=== PATIENT | female | born 1990 | race Asian ===

== ENCOUNTER 2021-05-03 16:39 | Emergency (ER) | payer OTHER ==
[2021-05-03 16:53] VITALS: BP 115/70; PULSE 80; RESP 18; TEMP 98.3
[2021-05-03 17:50] LABS: Basophils % (A) 1 %; Eosinophils # (A) 0.2 k/uL (0-0.7); Eosinophils % (A) 3 %; HCT 36.9 % (34.0-46.0); HGB 12.6 gm/dL (11.4-16.0); Lymphocytes # (A) 1.5 k/uL (1.0-4.8); Lymphocytes % (A) 18 %; MCH 30.6 pg (25.0-35.0); MCHC 34.1 g/dL (31.0-37.0); MCV 89.8 fL (80.0-100.0); Mean Platelet Volume 7.3; Monocytes # (A) 0.4 k/uL (0-1.0); Monocytes % (A) 5 %; Neutrophils # (A) 5.8 k/uL (1.3-7.7); Neutrophils % (A) 71 %; Platelet Count 253 k/uL (150-450); RBC 4.11 m/uL (3.80-5.40); RDW 14.3 % (11.5-15.5); WBC 8.2 k/uL (3.8-10.6)
[2021-05-03 17:53] LABS: Appearance,Urine Clear (Clear); Bacteria,Urine Rare /hpf; Bilirubin,Urine Negative (Negative); Blood,Urine Large (Negative); Color,Urine Yellow; Glucose,Urine (UA) Negative (Negative); Ketones,Urine Negative (Negative); Leukocyte Esterase,Urine Trace (Negative); Nitrite,Urine Negative (Negative); Protein,Urine Trace (Negative); RBC,Urine >182 /hpf (0-5); Specific Gravity,Urine 1.009 (1.001-1.035); Squamous Epithelial Cell,Urine 1 /hpf (0-4); Urobilinogen,Urine <2.0 mg/dL (<2.0); WBC,Urine 14 /hpf (0-5)
[2021-05-03 18:10] LABS: ALT 17 U/L (4-34); AST 27 U/L (14-36); African American GFR (CKD) >90 (>60 ml/min/1.73 sqM); Albumin 3.8 g/dL (3.5-5.0); Alkaline Phosphatase 44 U/L (38-126); Anion Gap 6 mmol/L; Blood Urea Nitrogen 12 mg/dL (7-17); Calcium 8.7 mg/dL (8.4-10.2); Carbon Dioxide 25 mmol/L (22-30); Chloride 104 mmol/L (98-107); Glucose 132 mg/dL (74-99); Non-African American GFR(CKD) >90 (>60 ml/min/1.73 sqM); Potassium 3.6 mmol/L (3.5-5.1); Sodium 135 mmol/L (137-145); Total Bilirubin 0.5 mg/dL (0.2-1.3); Total Protein 7.2 g/dL (6.3-8.2)
[2021-05-03 18:27] LABS: HCG,Quantitative Serum 3.4 mIU/mL
--- NOTE | 2021-05-03 18:53 | US ---
EXAMINATION TYPE: Transabdominal DATE OF EXAM: 05/03/2021 6:29 PM COMPARISON: NONE CLINICAL HISTORY: vaginal bleeding. EC patient with heavy vaginal bleeding with clots x 2 days; multi ple positive home tests yesterday per patient with 1 out of 2 negative today. EXAM PERFORMED: Transvaginal (TV) and Transabdominal (TA) EXAM MEASUREMENTS: GESTATIONAL AGE / DATING Physician Established: Not yet established Dates by LMP: (3 weeks/6 days) EDC: 01/11/2022 Dates by First Scan: No previous Dates by Current Scan for: No IUP seen at this time; no ectopic seen MATERNAL ANATOMY Uterus: retroverted; 9 x3 x 4.7 x 4.6cm Right Ovary: 4.1 x 2.7 x 1.9cm; multiple small follicles seen Left Ovary: 2.2 x 2.4 x 1.3cm; multiple follicles with largest = 0.9 x 1.0 x 0.9cm Post CDS / Adnexa: free fluid seen lateral to left ovary =1.9 x 1.3 x 2.5cm Presence of corpus luteal cyst: not seen GESTATION / SURVEY; No IUP seen; no ectopic seen. Date of LMP: 04/06/2021 Beta HcG (if available): 3.4mIU/mL IMPRESSION: Empty uterus. No adnexal mass. Minimal free fluid on the left side.
--- NOTE | 2021-05-03 19:03 | ED ---
Female Urogenital HPI - General Chief complaint: Vaginal Bleeding Stated complaint: early , vaginal bleeding Time Seen by Provider: 05/03/21 16:55 Source: patient Mode of arrival: ambulatory Limitations: no limitations - History of Present Illness Initial comments: Patient is a 31-year-old female who presents the ER today for vaginal bleeding. Patient states that she had a positive test in July of last year, she miscarried on October 06. Her last menstrual period was early March, she had a positive test earlier this week and began having some bleeding yesterday continues to bleed today. Minimal cramping. Patient states that she feels the same as she did when she had a miscarriage before. Patient has not had any care for this estimates that she is 4 weeks . - Related Data Allergies Allergy/AdvReac Type Severity Reaction Status Date / Time shellfish derived [Shellfish] Allergy Rash/Hives Verified 05/03/21 16:50 Review of Systems ROS Statement: Those systems with pertinent positive or pertinent negative responses have been documented in the HPI. ROS Other: All systems not noted in ROS Statement are negative. Past Medical History Past Medical History: No Reported History History of Any Multi-Drug Resistant Organisms: None Reported Past Surgical History: No Surgical Hx Reported Past Psychological History: No Psychological Hx Reported Smoking Status: Never smoker Past Alcohol Use History: None Reported Past Drug Use History: None Reported General Exam - General Exam Comments Initial Comments: Physical Exam GENERAL: Patient is well-developed and well-nourished. Patient is nontoxic and well-hydrated and is in no distress. HENT: Normocephalic, Atraumatic. EYES: PERRL, EOMI PULMONARY: Unlabored respirations. CARDIOVASCULAR: RRR Warm and well perfused extremities ABDOMEN: Non-distended SKIN: No rashes or bruising : Deferred NEUROLOGIC: Alert and oriented Normal speech Normal gait MUSCULOSKELETAL: Moving all extremities with no apparent injury PSYCHIATRIC: No SI/HI Limitations: no limitations Course Vital Signs 05/03/21 16:50 Temperature 98.3 F Pulse Rate 80 Respiratory 18 Rate Blood Pressure 115/70 O2 Sat by Pulse 98 Oximetry Medical Decision Making - Medical Decision Making Patient was seen and evaluated history is obtained from patient Labs and ultrasound were obtained Labs reveal a decreasing beta hCG, ultrasound with nothing visible in the uterus or in the adnexa Results were discussed the patient advised that it seems she is again miscarrying. 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 All questions pertaining care were answered best my ability the patient was discharged home in stable condition. - Lab Data Result diagrams: 05/03/21 17:41 05/03/21 17:41 Lab Results 05/03/21 05/03/21 05/03/21 Range/Units 17:41 17:41 17:41 WBC 8.2 (3.8-10.6) k/uL RBC 4.11 (3.80-5.40) m/uL Hgb 12.6 (11.4-16.0) gm/dL Hct 36.9 (34.0-46.0) % MCV 89.8 (80.0-100.0) fL MCH 30.6 (25.0-35.0) pg MCHC 34.1 (31.0-37.0) g/dL RDW 14.3 (11.5-15.5) % Plt Count 253 (150-450) k/uL MPV 7.3 Neutrophils % 71 % Lymphocytes % 18 % Monocytes % 5 % Eosinophils % 3 % Basophils % 1 % Neutrophils # 5.8 (1.3-7.7) k/uL Lymphocytes # 1.5 (1.0-4.8) k/uL Monocytes # 0.4 (0-1.0) k/uL Eosinophils # 0.2 (0-0.7) k/uL Basophils # 0.0 (0-0.2) k/uL Sodium 135 L (137-145) mmol/L Potassium 3.6 (3.5-5.1) mmol/L Chloride 104 (98-107) mmol/L Carbon Dioxide 25 (22-30) mmol/L Anion Gap 6 mmol/L BUN 12 (7-17) mg/dL Creatinine 0.51 L (0.52-1.04) mg/dL Est GFR (CKD-EPI)AfAm >90 (>60 ml/min/1.73 sqM) Est GFR (CKD-EPI)NonAf >90 (>60 ml/min/1.73 sqM) Glucose 132 H (74-99) mg/dL Calcium 8.7 (8.4-10.2) mg/dL Total Bilirubin 0.5 (0.2-1.3) mg/dL AST 27 (14-36) U/L ALT 17 (4-34) U/L Alkaline Phosphatase 44 (38-126) U/L Total Protein 7.2 (6.3-8.2) g/dL Albumin 3.8 (3.5-5.0) g/dL HCG, Quant 3.4 mIU/mL Urine Color Urine Appearance (Clear) Urine pH (5.0-8.0) Ur Specific [place] (1.001-1.035) Urine Protein (Negative) Urine Glucose (UA) (Negative) Urine Ketones (Negative) Urine Blood (Negative) Urine Nitrite (Negative) Urine Bilirubin (Negative) Urine Urobilinogen (<2.0) mg/dL Ur Leukocyte Esterase (Negative) Urine RBC (0-5) /hpf Urine WBC (0-5) /hpf Ur Squamous Epith Cells (0-4) /hpf Urine Bacteria (None) /hpf Blood Type O Positive Blood Type Recheck No Previous Record Bld Type Recheck Status [facility] ONLY 05/03/21 Range/Units 17:41 WBC (3.8-10.6) k/uL RBC (3.80-5.40) m/uL Hgb (11.4-16.0) gm/dL Hct (34.0-46.0) % MCV (80.0-100.0) fL MCH (25.0-35.0) pg MCHC (31.0-37.0) g/dL RDW (11.5-15.5) % Plt Count (150-450) k/uL MPV Neutrophils % % Lymphocytes % % Monocytes % % Eosinophils % % Basophils % % Neutrophils # (1.3-7.7) k/uL Lymphocytes # (1.0-4.8) k/uL Monocytes # (0-1.0) k/uL Eosinophils # (0-0.7) k/uL Basophils # (0-0.2) k/uL Sodium (137-145) mmol/L Potassium (3.5-5.1) mmol/L Chloride (98-107) mmol/L Carbon Dioxide (22-30) mmol/L Anion Gap mmol/L BUN (7-17) mg/dL Creatinine (0.52-1.04) mg/dL Est GFR (CKD-EPI)AfAm (>60 ml/min/1.73 sqM) Est GFR (CKD-EPI)NonAf (>60 ml/min/1.73 sqM) Glucose (74-99) mg/dL Calcium (8.4-10.2) mg/dL Total Bilirubin (0.2-1.3) mg/dL AST (14-36) U/L ALT (4-34) U/L Alkaline Phosphatase (38-126) U/L Total Protein (6.3-8.2) g/dL Albumin (3.5-5.0) g/dL HCG, Quant mIU/mL Urine Color Yellow Urine Appearance Clear (Clear) Urine pH 7.0 (5.0-8.0) Ur Specific [place] 1.009 (1.001-1.035) Urine Protein Trace H (Negative) Urine Glucose (UA) Negative (Negative) Urine Ketones Negative (Negative) Urine Blood Large H (Negative) Urine Nitrite Negative (Negative) Urine Bilirubin Negative (Negative) Urine Urobilinogen <2.0 (<2.0) mg/dL Ur Leukocyte Esterase Trace H (Negative) Urine RBC >182 H (0-5) /hpf Urine WBC 14 H (0-5) /hpf Ur Squamous Epith Cells 1 (0-4) /hpf Urine Bacteria Rare H (None) /hpf Blood Type Blood Type Recheck Bld Type Recheck Status Disposition Clinical Impression: Miscarriage Disposition: HOME SELF-CARE Condition: Stable Instructions (If sedation given, give patient instructions): Miscarriage (ED) Is patient prescribed a controlled substance at d/c from ED?: No Referrals: Susan Ingram MD [Primary Care Provider] - 1-2 days Jurgen Curry MD [STAFF PHYSICIAN] - 1-2 days
== END 2021-05-03 19:31 | disposition home or self-care (01) ==
LOC: EC 16:39
DX: O03.9 Complete or unspecified spontaneous abortion without complication (principal); Z91.013 Allergy to seafood
CPT/HCPCS: 36415; 76801; 76817; 80053; 81001; 84702; 85025; 86900; 86901; 87086; 99284

== ENCOUNTER → 2021-11-02 | Outpatient (CLI) | payer OTHER ==
--- NOTE | 2021-11-02 21:49 | US ---
EXAMINATION TYPE: Ultrasound OB <= 14 week fetus DATE OF EXAM: 11/02/2021 4:11 PM COMPARISON: None CLINICAL HISTORY: 31-year-old female Z36.89 CONFIRM GESTATIONAL AGE. Confirm dates EXAM PERFORMED: Transabdominal (TA) FINDINGS: EXAM MEASUREMENTS: GESTATIONAL AGE / DATING Physician Established: (11 weeks/5 days) EDC: 05/19/2022 Dates by LMP: (11 weeks/5 days) EDC: 05/19/2022 Dates by First Scan: No previous this is first scan Dates by Current Scan for: (11 weeks/4 days) EDC: 05/20/2022 MATERNAL ANATOMY Uterus: 11.9 x 5.7 x 9.0cm Right Ovary: 3.8 x 2.4 x 1.9cm Left Ovary: not seen Post CDS / Adnexa: wnl Presence of free fluid: no Presence of corpus luteal cyst: not seen Presence of subchorionic bleed: 1.0 x 1.1 x 1.5cm, inferior to gestational sac GESTATION / SURVEY CRL: 4.7cm (11 weeks/4 days) Yolk Sac (normal less than 6mm): not seen Heart Rate: 165 bpm Rhythm: Normal IUP: Viable IUP Date of LMP: 08/12/2021 IMPRESSION: 1. Single live intrauterine with estimated gestational age of 11 weeks 5 days by LMP. Curre nt ultrasound biometry is concordant (11 weeks 4 days). 2. Small perigestational bleed along the inferior margin. 3. Complete survey recommended at 18-20 weeks.
== END | disposition home or self-care (01) ==
LOC: RADUSWWP 15:45
PROVIDERS: ATTEND Obstetrics & Gynecology
DX: Z36.89 Encounter for other specified antenatal screening (principal); Z3A.11 11 weeks gestation of pregnancy
CPT/HCPCS: 76801

== ENCOUNTER 2022-05-16 19:15 | Inpatient (IN) | payer OTHER ==
[2022-05-16] MEDS ORDERED: TERBUTALINE 1 MG/ML VIAL SQ PRN (19:54)
[2022-05-16] MEDS ORDERED: METHYLERGONOVINE 0.2 MG/ML 1 ML AMP IM PRN (19:54)
[2022-05-16] MEDS ORDERED: LIDOCAINE 0.5% (PF) 5 MG/ML (50 ML SDV) SQ PRN (19:54)
[2022-05-16] MEDS ORDERED: CARBOPROST TROMETHAMINE 250 MCG/ML 1 ML AMP IM PRN (19:54)
[2022-05-16] MEDS ORDERED: OXYTOCIN 10 UNIT/ML 1 ML VIAL IM PRN (19:54)
[2022-05-16] MEDS: LACTATED RINGERS 1,000 ML IV SCH (20:20)
[2022-05-16 20:57] LABS: Basophils # (A) 0.1 k/uL (0-0.2); Basophils % (A) 0 %; Eosinophils # (A) 0.1 k/uL (0-0.7); Eosinophils % (A) 1 %; HCT 39.2 % (34.0-46.0); HGB 12.8 gm/dL (11.4-16.0); Lymphocytes # (A) 1.3 k/uL (1.0-4.8); Lymphocytes % (A) 11 %; MCH 30.3 pg (25.0-35.0); MCHC 32.7 g/dL (31.0-37.0); MCV 92.7 fL (80.0-100.0); Mean Platelet Volume 10.2; Monocytes # (A) 0.7 k/uL (0-1.0); Monocytes % (A) 6 %; Neutrophils # (A) 9.6 k/uL (1.3-7.7); Neutrophils % (A) 81 %; Platelet Count 224 k/uL (150-450); RBC 4.23 m/uL (3.80-5.40); WBC 11.8 k/uL (3.8-10.6)
--- NOTE | 2022-05-16 21:12 | P.HPOB ---
History of Present Illness H&P Date: 05/16/22 Chief Complaint: Contractions This is a 32-year-old female 4 para 0 with an estimated date of confinement of 05/19/2022, estimated gestational age of 39-4/7 weeks, who presents to labor and delivery with complaints of contractions for the last 3 hours and questionable spontaneous rupture membranes upon arrival to triage. She was amnisure positive and was having contractions regularly upon arrival to triage. Her course has been uncomplicated. She was noted to have a marginal cord insertion and low lying placenta on her latest ultrasound. labs: Pap smear-within normal limits GC/chlamydia/Trichomonas-negative One hour Glucola-144, 3 hour Glucola-within normal limits Hepatitis B surface antigen-negative RPR-nonreactive Swetha-equivocal Blood type-O+ Antibody screen-negative HIV-nonreactive Hemoglobin-12.9 Toxoplasma screen-negative Random glucose-89 Group B streptococcus-negative Obstetrical history: . History of 3 miscarriages. Gynecologic history: No history of sexual transmitted diseases. Social history: She is single. She is currently unemployed. Review of Systems Constitutional: Denies chills, Denies fever Eyes: denies blurred vision, denies pain Ears, nose, mouth and throat: Denies headache, Denies sore throat Cardiovascular: Denies chest pain, Denies shortness of breath Respiratory: Denies cough Gastrointestinal: Reports abdominal pain (Contractions), Reports heartburn Genitourinary: Reports pelvic pain, Reports , Denies dysuria, Denies hematuria Musculoskeletal: Reports low back pain Integumentary: Denies pruritus, Denies rash Neurological: Denies numbness, Denies weakness Psychiatric: Denies anxiety, Denies depression Past Medical History Past Medical History: No Reported History History of Any Multi-Drug Resistant Organisms: None Reported Past Surgical History: No Surgical Hx Reported Past Psychological History: No Psychological Hx Reported Smoking Status: Former smoker (Was previously vaping prior to ) Past Alcohol Use History: None Reported Past Drug Use History: None Reported - Past Family History Father Family Medical History: Hypertension Medications and Allergies Home Medications Medication Instructions Recorded Confirmed Type Famotidine [Pepcid] 10 mg PO DAILY 05/16/22 05/16/22 History Vit No.179/Iron/Folic 1 each PO DAILY 05/16/22 05/16/22 History [ Tablet] Allergies Allergy/AdvReac Type Severity Reaction Status Date / Time shellfish derived [Shellfish] Allergy Rash/Hives Verified 05/16/22 19:52 Exam Osteopathic Statement: *. No significant issues noted on an osteopathic st ructural exam other than those noted in the History and Physical/Consult. Vital Signs Temp Pulse Resp BP 05/16/22 19:40 97.4 F L 99 16 120/78 Intake and Output 05/16/22 05/16/22 05/16/22 06:59 14:59 22:59 Other: Weight 80.286 kg HEENT: Within normal limits Heart: Regular rate and rhythm Lungs: Clear to auscultation bilaterally Abdomen: Cervix: Initially was 4 cm in triage and currently is 5 cm/80-90%/-2 station with meconium fluid noted. There was a second bag that was palpated and artificial ruptured with meconium noted. heart tones: 120s with accelerations and good variability. She did have one deceleration to approximately the 80s to 90s for approximately 2 minutes that did have slow return to baseline that occurred while she was sitting up on a birthing ball. Extremities: Negative Homans Results Result Diagrams: 05/16/22 20:38 Abnormal Lab Results - Last 24 Hours (Table) 05/16/22 Range/Units 20:38 WBC 11.8 H (3.8-10.6) k/uL Neutrophils # 9.6 H (1.3-7.7) k/uL Assessment and Plan (1) 39 weeks gestation of Current Visit: Yes Status: Acute Code(s): Z3A.39 - 39 WEEKS GESTATION OF SNOMED Code(s): 31760075 (2) Meconium in amniotic fluid Current Visit: Yes Status: Acute Code(s): P96.83 - MECONIUM STAINING SNOMED Code(s): 259323402 Plan: Admission for active labor. Expectant management. Anesthesia will be notified regarding meconium fluid.
[2022-05-16] MEDS ORDERED: OXYTOCIN 30 UNITS/500 ML NS 30 UNIT in SALINE 1 500ML.BAG IV SCH (23:15)
[2022-05-16] MEDS ORDERED: CITRIC ACID-SODIUM CITRATE 15 ML CUP PO ONE (23:50)
[2022-05-16] MEDS ORDERED: SODIUM CHLORIDE 0.9% 100 ML BAG ONE (23:58)
[2022-05-16] MEDS ORDERED: ceFAZolin 1,000 MG VIAL ONE (23:58)
[2022-05-16] MEDS ORDERED: ONDANSETRON 4 MG/2 ML VIAL ONE (23:58)
[2022-05-16] MEDS ORDERED: OXYTOCIN 30 UNITS/500 ML NS BAG IV ONE (23:58)
[2022-05-16] MEDS ORDERED: PROPOFOL 10 MG/ML 20 ML VIAL IV ONE (23:58)
[2022-05-16] MEDS ORDERED: KETOROLAC 15 MG/ML 1 ML VIAL ONE (23:58)
[2022-05-16] MEDS ORDERED: fentaNYL (PF) 50 MCG/ML 2 ML AMP ONE (23:58)
[2022-05-16] MEDS ORDERED: SUCCINYLCHOLINE CHLORIDE 200 MG/10 ML VIAL IV ONE (23:58)
[2022-05-16] MEDS ORDERED: MIDAZOLAM 2 MG/2 ML VIAL ONE (23:58)
--- NOTE | 2022-05-17 01:01 | P.OP ---
Date of Procedure: 05/17/22 Preoperative Diagnosis: 1. Intrauterine at 39-4/7 weeks. 2. Meconium. 3. bradycardia. Postoperative Diagnosis: Same Procedure(s) Performed: Primary low transverse section Anesthesia: DIAMOND Surgeon: Adriane Aceves Slitter And Rewinder #1: Jayant Gonzalez Estimated Blood Loss (ml): 710 Pathology: other (Placenta) Condition: stable Disposition: floor Indications for Procedure: This is a 32-year-old female 4 para 0 at 39-4/7 weeks who presented in active labor at 4 cm with spontaneous rupture membranes upon arrival to triage. She did have a fore bag was ruptured with meconium fluid noted. Shortly after that she did have a deceleration down to the 60s that have slow return to baseline with position changes. Baby did do well for a while and then oxytocin was started due to no cervical change beyond 5 cm. Shortly after this she was checked and had another deceleration that went down to the 30s with again slow return to baseline. At this point urgent emergent section was called. I have discussed the risks, benefits, and alternative therapies for the above- mentioned procedure and for both sedation/anesthesia as well as necessary blood products administration, if indicated, as they pertain to this patient. The patient has indicated her understanding and acceptance of the risks and procedures discussed. Operative Findings: A viable female infant is noted in the vertex presentation with scores of 1 at 1 minute and. weight is 7 lbs. 7 oz. Normal uterus tubes and ovaries are noted. There was a slightly irregular contour to the posterior side of the uterus and some scarring that appeared to be possible old infection. Placenta did show a very marginal cord insertion and meconium staining of the membranes. Description of Procedure: The patient is taken to the operating room where she is placed in the dorsal supine position with leftward tilt. She is prepped and draped in the normal sterile fashion. Skin was tested and found to be adequately anesthetized. A Pfannenstiel skin incision was made with a scalpel. A second knife was used to carry the incision down to the underlying layer of fascia. The fascia was nicked in the midline with a scalpel and then extended laterally bilaterally with Hernández scissors. The anterior lip of the fascia was grasped with 2 Liudmila clamps and then dissected off the underlying rectus muscle in the midline with Hernández scissors. The inferior aspect of the fascial incision was grasped with 2 Liudmila clamps and dissected off the underlying rectus muscle and the midline with Hernández scissors. Next the peritoneum layer was tented up with 2 hemostats and then entered sharply with the scalpel. The incision is extended superiorly and inferiorly with Metzenbaum scissors. Next a DeLee retractor is placed. The vesicouterine peritoneum is entered sharply with Metzenbaum scissors and extended laterally bilaterally with Metzenbaum scissors and then the bladder flap is pushed inferiorly. The lower uterine segment is incised in transverse fashion with the scalpel and then bluntly entered with a hemostat. Meconium fluid is noted. The incision was then extended laterally bilaterally with 2 fingers. Next the 's head is delivered through the incision. Nose and mouth are bulb suctioned. The remainder of the infant is easily delivered and placed on mother's abdomen. Cord is clamped and cut. is taken to level I nursery by nursing staff. Uterine fundus is gently massaged and placenta is delivered manually. Uterus is exteriorized and cleared of all clots and debris. Uterine incision is closed with 0 Vicryl suture in a running locked fashion. A second layer of 0 Vicryl suture is used in a running fashion for hemostasis. Once adequate hemostasis as assured, the vesicouterine peritoneum is reapproximated with 2-0 Vicryl suture in a running fashion. Posterior cul-de-sac is suctioned of all clots and debris. Uterus is returned to the abdomen. Incision is noted to be hemostatic. Peritoneal layer is closed with 0 Vicryl suture in a running fashion. Muscle layer is reapproximated with 0 Vicryl suture in interrupted fashion. Fascia layer is then closed with 0 PDS suture with 2 sutures meeting in the midline and the knots buried in either side and in the midline. The subcutaneous tissue was then closed with 2-0 Vicryl suture. Skin layer was then closed with philipp. All sponge and needle counts are correct. The patient is taken to recovery room in stable condition.
--- NOTE | 2022-05-17 01:07 | P.MSEPDOC ---
Presenting Problems - Arrival Data Date of Arrival on Unit: 05/16/22 Time of Arrival on Unit: 19:53 Mode of Transport: Ambulatory - Complaint OB-Reason for Admission/Chief Complaint: Possible Onset of Labor, Rule Out SROM Comment: leaking clear fluid, contx 2-4 minutes apart for late few hours Medical History - Information : 4 Para: 0 Term: 0 : 0 Abortions: Spontaneous or Elective: 3 Number of Living Children: 0 - Gestational Age Gestational Age by [place] (wks/days): 39 Weeks and 4 Days - History Comment: no problems with this preg Review of Systems - Review of Systems Constitutional: No problems Breast: No problems ENT: No problems Cardiovascular: No problems Respiratory: No problems Gastrointestinal: No problems Genitourinary: No problems Musculoskeletal: No problems Neurological: No problems Skin: No problems Vital Signs - Temperature Temperature: 97.7 F Temperature Source: Temporal Artery Scan - Pulse Right Radial Pulse Rate: 76 Pulse Assessment Method: Automatic Cuff - Respirations Respiratory Rate: 16 Oxygen Delivery Method: Room Air O2 Sat by Pulse Oximetry: 97 - Blood Pressure Right Arm Blood Pressure: 129/78 Blood Pressure Mean: 95 Blood Pressure Source: Automatic Cuff Medical Screen Scoring - Cervical Exam Dilation (cm): 4 Effacement (%): 80 Station: -2 Membranes: Ruptured - Uterine Contractions Frequency From (mins): 2 Frequency To (mins): 4 Duration From (seconds): 40 Duration To (seconds): 70 Intensity: Moderate Resting: Soft to palpation - Assessment - Baby A Baseline FHR: 140 Heart Rate - NICHD Category: Category I (Normal) NST: Reactive Physician Notification - Physician Notified Physician Notified Date: 05/16/22 Physician Notified Time: 19:30 Physician: Adriane Aceves Order Received: Yes (adm for delivery) Maternal Triage Index - Scheduled/Requesting Priority 5 Scheduled/Requesting Priority 5: Yes Criteria Met for Priority 5: srom at home . freq contxs. scheduled induction for . dilated now 4cm. Disposition - Disposition OB Disposition: Admit, LDRP Suite I agree with the RN Medical Screening Exam: Yes Case reviewed; plan agreed upon as documented in EMR&OBIX.: Yes Diagnosis: ENCOUNTER FOR FULL-TERM UNCOMPLICATED DELIVERY
[2022-05-17] MEDS ORDERED: METOCLOPRAMIDE 5 MG/ML 2 ML VIAL IVP PRN (01:25)
[2022-05-17] MEDS ORDERED: NALOXONE 0.4 MG/ML 1 ML VIAL IV PRN (01:25)
[2022-05-17] MEDS ORDERED: diphenhydrAMINE 50 MG CAP PO PRN (01:25)
[2022-05-17] MEDS ORDERED: diphenhydrAMINE 25 MG CAP PO PRN (01:25)
[2022-05-17] MEDS ORDERED: MEASLES-MUMPS-RUBELLA VACC/PF 12,500 UNIT/0.5 ML VIAL SQ ONE (01:25)
[2022-05-17] MEDS ORDERED: LANOLIN CREAM 5 GM TUBE TOPICAL PRN (01:25)
[2022-05-17] MEDS ORDERED: diphenhydrAMINE 50 MG/ML 1 ML VIAL IVP PRN ×2 (01:25)
[2022-05-17] MEDS ORDERED: OXYTOCIN 30 UNITS/500 ML NS 30 UNIT in SALINE 1 500ML.BAG IV SCH (01:25)
[2022-05-17] MEDS ORDERED: ZOLPIDEM 5 MG TAB PO PRN (01:25)
[2022-05-17] MEDS ORDERED: ONDANSETRON 4 MG/2 ML VIAL IVP PRN (01:25)
[2022-05-17] MEDS ORDERED: HYDROmorphone PCA 10 MG/50 ML BAG IV PRN (02:00)
[2022-05-17] MEDS: ACETAMINOPHEN IV (For NPO) 1,000 MG in EMPTY BAG 1 BAG IVPB SCH ×2 (06:00→16:35)
[2022-05-17] MEDS: LACTATED RINGERS 1,000 ML IV SCH ×3 (06:00→20:41)
[2022-05-17] MEDS: ACETAMINOPHEN TAB 500 MG TAB PO SCH ×3 (06:20→20:09)
[2022-05-17] MEDS: PRENATAL VIT-IRON-FOLIC ACID 1 EACH TABLET PO SCH (08:03)
[2022-05-17] MEDS: SENNOSIDES-DOCUSATE SODIUM 1 EACH TAB PO SCH ×2 (08:03→20:11)
[2022-05-17] MEDS: FAMOTIDINE 20 MG TAB PO SCH (08:04)
--- NOTE | 2022-05-17 09:01 | P.PNOBGPC ---
Subjective - Subjective Principal diagnosis: Status post primary section postoperative day #0 Interval history: Patient is doing okay. She has not passed flatus or bowel movement yet. She has not ambulated yet. Pain is fairly well controlled at this time. Patient reports: Reports pain well controlled [place]: other (In level I nursery) Objective - Vital Signs Latest vital signs: Vital Signs Temp Pulse Resp BP Pulse Ox 05/17/22 08:00 97.9 F 81 18 129/78 05/17/22 04:00 98.5 F 83 15 117/77 97 05/17/22 02:45 97.6 F 89 14 133/72 97 05/17/22 02:15 81 15 132/69 99 05/17/22 01:45 73 15 123/65 100 05/17/22 01:30 83 15 131/68 100 05/17/22 01:15 76 15 123/64 100 05/17/22 01:07 97.7 F 76 16 129/78 97 05/17/22 01:00 88 15 127/66 100 05/17/22 00:45 97.7 F 98 14 116/88 100 05/16/22 20:11 97.7 F 76 16 129/78 97 05/16/22 19:40 97.4 F L 99 16 120/78 Intake and Output 05/16/22 05/17/22 05/17/22 22:59 06:59 14:59 Intake Total 3 Output Total 2780 Balance -2777 Intake: Intake, IV Titration 3 Amount Oxytocin 30 Units/500 ml 3 Ns 30 unit In Saline 1 500ml.bag @ Per Protocol IV .Q0M [facility] Rx#:[id number] Output: Urine 450 Estimated Blood Loss 2130 Output, Quantitative 200 Blood Loss Other: Voiding Method Indwelling Catheter # Voids 1 Weight 80.286 kg - Exam Extremities: Present: normal. Absent: tenderness, edema Abdomen: Present: normal appearance, soft (Positive bowel sounds 4). Absent: distention, tenderness Incision: Present: normal, dry, intact. Absent: erythematous Uterus: Present: normal, firm. Absent: tenderness - Labs Labs: Abnormal Lab Results - Last 24 Hours (Table) 05/16/22 Range/Units 20:38 WBC 11.8 H (3.8-10.6) k/uL Neutrophils # 9.6 H (1.3-7.7) k/uL Assessment and Plan Assessment: Status post primary low transverse section postoperative day #0 (1) 39 weeks gestation of Current Visit: Yes Status: Acute Code(s): Z3A.39 - 39 WEEKS GESTATION OF SNOMED Code(s): 21303780 (2) Meconium in amniotic fluid Current Visit: Yes Status: Acute Code(s): P96.83 - MECONIUM STAINING SNOMED Code(s): 263306621 Plan: We will ambulate today. Advance diet as tolerated after flatus. Patient is encouraged to ambulate and will switch to oral medications when needed.
[2022-05-17] MEDS: IBUPROFEN 600 MG TAB PO SCH ×3 (09:46→22:18)
[2022-05-17] MEDS: KETOROLAC 15 MG/ML 1 ML VIAL IVP SCH ×2 (17:40→20:41)
[2022-05-17] MEDS: SIMETHICONE 80 MG CHEWABLE PO PRN (20:14)
[2022-05-18] MEDS: ACETAMINOPHEN TAB 500 MG TAB PO SCH ×4 (01:55→23:59)
[2022-05-18] MEDS: KETOROLAC 15 MG/ML 1 ML VIAL IVP SCH ×3 (01:56→13:29)
[2022-05-18] MEDS: IBUPROFEN 600 MG TAB PO SCH ×3 (04:43→20:48)
[2022-05-18] MEDS: LACTATED RINGERS 1,000 ML IV SCH ×2 (04:45→13:29)
[2022-05-18 07:18] LABS: Basophils % (A) 0 %; Eosinophils # (A) 0.1 k/uL (0-0.7); Eosinophils % (A) 1 %; HCT 29.2 % (34.0-46.0); Lymphocytes # (A) 1.5 k/uL (1.0-4.8); Lymphocytes % (A) 10 %; MCH 30.2 pg (25.0-35.0); MCHC 32.2 g/dL (31.0-37.0); MCV 93.8 fL (80.0-100.0); Mean Platelet Volume 9.5; Monocytes # (A) 0.7 k/uL (0-1.0); Monocytes % (A) 5 %; Neutrophils # (A) 12.2 k/uL (1.3-7.7); Neutrophils % (A) 83 %; Platelet Count 194 k/uL (150-450); RBC 3.11 m/uL (3.80-5.40); RDW 13.6 % (11.5-15.5); WBC 14.7 k/uL (3.8-10.6)
[2022-05-18 07:25] LABS: HGB 9.4 gm/dL (11.4-16.0)
[2022-05-18] MEDS: SENNOSIDES-DOCUSATE SODIUM 1 EACH TAB PO SCH ×3 (08:14→21:30)
[2022-05-18] MEDS: PRENATAL VIT-IRON-FOLIC ACID 1 EACH TABLET PO SCH (08:14)
[2022-05-18] MEDS: SIMETHICONE 80 MG CHEWABLE PO PRN (08:14)
[2022-05-18] MEDS: FAMOTIDINE 20 MG TAB PO SCH (08:15)
--- NOTE | 2022-05-18 08:16 | P.PNOBGPC ---
Subjective - Subjective Principal diagnosis: Status post primary section postoperative day #1 Interval history: Patient is doing okay. She has been ambulating. She is passing some flatus. She denies any bowel movement yet. Bleeding has been minimal. Her pain has been okay. Baby is still in the level I nursery. She is trying to pump some breast milk. Patient reports: Reports appetite normal, Reports voiding normally, Reports pain well controlled, Reports ambulating normally : other (In level I nursery) Objective - Vital Signs Latest vital signs: Vital Signs Temp Pulse Resp BP Pulse Ox 05/18/22 00:00 98.2 F 74 14 115/71 98 05/17/22 20:00 98.5 F 95 16 121/78 97 05/17/22 16:00 98.1 F 97 18 110/70 99 05/17/22 12:00 97.9 F 74 18 116/69 Intake and Output 05/17/22 05/18/22 05/18/22 22:59 06:59 14:59 Output Total 800 Balance -800 Output: Urine 800 Other: # Voids 2 1 - Exam Extremities: Present: normal. Absent: tenderness Abdomen: Present: normal appearance, soft (Positive bowel sounds 4), distention (Slight). Absent: tenderness Incision: Present: normal, dry, intact. Absent: erythematous Uterus: Present: normal, firm. Absent: tenderness - Labs Labs: Abnormal Lab Results - Last 24 Hours (Table) 05/18/22 Range/Units 06:27 WBC 14.7 H (3.8-10.6) k/uL RBC 3.11 L (3.80-5.40) m/uL Hgb 9.4 L D (11.4-16.0) gm/dL Hct 29.2 L (34.0-46.0) % Neutrophils # 12.2 H (1.3-7.7) k/uL Assessment and Plan Assessment: Status post primary low transverse section postoperative day #1 (1) 39 weeks gestation of Current Visit: Yes Status: Acute Code(s): Z3A.39 - 39 WEEKS GESTATION OF SNOMED Code(s): 08159478 (2) Meconium in amniotic fluid Current Visit: Yes Status: Acute Code(s): P96.83 - MECONIUM STAINING SNOMED Code(s): 916685566 Plan: Continue postoperative and care. Will work on ambulation, pain control.
[2022-05-19] MEDS: IBUPROFEN 600 MG TAB PO SCH ×4 (03:07→20:21)
[2022-05-19] MEDS: SENNOSIDES-DOCUSATE SODIUM 1 EACH TAB PO SCH ×2 (07:38→20:22)
[2022-05-19] MEDS: FAMOTIDINE 20 MG TAB PO SCH (07:42)
[2022-05-19] MEDS: PRENATAL VIT-IRON-FOLIC ACID 1 EACH TABLET PO SCH (07:42)
[2022-05-19] MEDS: SIMETHICONE 80 MG CHEWABLE PO PRN (07:42)
[2022-05-19] MEDS: ACETAMINOPHEN TAB 500 MG TAB PO SCH ×5 (07:42→23:38)
--- NOTE | 2022-05-19 08:34 | P.PNOBGPC ---
Subjective - Subjective Principal diagnosis: Status post primary postoperative day #2 Interval history: Patient is doing better today. She has passed flatus and bowel movement. She is pumping her breast milk. Lochia has been minimal. Pain is fairly well controlled with ibuprofen and Tylenol. Baby is still in level I nursery doing better. Patient reports: Reports appetite normal, Reports voiding normally, Reports pain well controlled, Reports ambulating normally [place]: other (In level I nursery) Objective - Vital Signs Latest vital signs: Vital Signs Temp Pulse Resp BP Pulse Ox 05/19/22 08:00 98.2 F 83 18 128/87 05/19/22 00:00 97.8 F 95 16 125/82 97 05/18/22 16:00 97.9 F 87 18 131/85 100 05/18/22 11:43 98.2 F 96 18 130/90 Intake and Output 05/18/22 05/19/22 05/19/22 22:59 06:59 14:59 Other: Voiding Method Toilet # Voids 3 1 1 # Bowel Movements 3 - Exam Extremities: Present: normal. Absent: tenderness, edema Abdomen: Present: normal appearance, soft (Positive bowel sounds 4). Absent: d istention, tenderness Incision: Present: normal, dry, intact. Absent: erythematous Uterus: Present: normal, firm. Absent: tenderness Assessment and Plan Assessment: Status post primary section postoperative day #2 (1) 39 weeks gestation of Current Visit: Yes Status: Acute Code(s): Z3A.39 - 39 WEEKS GESTATION OF SNOMED Code(s): 68729309 (2) Meconium in amniotic fluid Current Visit: Yes Status: Acute Code(s): P96.83 - MECONIUM STAINING SNOMED Code(s): 262666486 Plan: Continue with postoperative and care. Advance diet as tolerated.
[2022-05-20] MEDS: IBUPROFEN 600 MG TAB PO SCH ×2 (06:04→08:27)
[2022-05-20] MEDS: FAMOTIDINE 20 MG TAB PO SCH (08:26)
[2022-05-20] MEDS: PRENATAL VIT-IRON-FOLIC ACID 1 EACH TABLET PO SCH (08:26)
[2022-05-20] MEDS: SENNOSIDES-DOCUSATE SODIUM 1 EACH TAB PO SCH (08:27)
[2022-05-20 08:35] VITALS: BP 128/79; PULSE 88; RESP 17; TEMP 98.1
--- NOTE | 2022-05-20 09:13 | P.PNOBGPC ---
Subjective - Subjective Principal diagnosis: Status post primary section postoperative day #3 Interval history: Patient is doing well. She is passing flatus and bowel movement. Baby is still in level I nursery doing better. Pain is fairly well controlled. Patient reports: Reports appetite normal, Reports voiding normally, Reports pain well controlled, Reports ambulating normally [place]: nursing well, other (In level I nursery) Objective - Vital Signs Latest vital signs: Vital Signs Temp Pulse Pulse Resp BP Pulse Ox 05/20/22 08:33 98.1 F 88 17 128/79 97 05/19/22 23:40 97.5 F L 84 16 112/75 05/19/22 16:00 98.1 F 80 18 127/80 Intake and Output 05/19/22 05/20/22 05/20/22 22:59 06:59 14:59 Other: # Voids 2 - Exam Extremities: Present: normal. Absent: tenderness, edema Abdomen: Present: normal appearance, soft (Positive bowel sounds 4). Absent: distention, tenderness Incision: Present: normal, dry, intact Assessment and Plan Assessment: Status post primary section postoperative day #3 (1) 39 weeks gestation of Current Visit: Yes Status: Acute Code(s): Z3A.39 - 39 WEEKS GESTATION OF SNOMED Code(s): 76467009 (2) Meconium in amniotic fluid Current Visit: Yes Status: Acute Code(s): P96.83 - MECONIUM STAINING SNOMED Code(s): 910114058 Plan: Patient states she would like to go home today and does come back and visit with baby since baby does have to stay until tomorrow. We'll continue with pain control through the day today.
--- NOTE | 2022-05-20 09:17 | P.DS ---
Providers Date of admission: 05/16/22 19:53 Expected date of discharge: 05/20/22 Attending physician: Adriane Aceves Primary care physician: Stated None - Discharge Diagnosis(es) (1) 39 weeks gestation of Current Visit: Yes Status: Acute (2) Meconium in amniotic fluid Current Visit: Yes Status: Acute Hospital Course: This is a 32-year-old female 4 para 0 at 39-6/7 weeks who presented with spontaneous rupture membranes. She had meconium fluid noted. She progressed to about 5-6 cm and then started having repetitive bradycardic episodes. She underwent a emergent primary section under general anesthesia and delivered a viable female with scores of 1 at 1 minute 6 at 5 minutes and 7 at 10 minutes and weight of 7 lbs. 7 oz. Her and postoperative care has been uncomplicated. Lochia has been decreasing. Pain is well-controlled. She has been pumping her breastmilk. She is passing flatus and bowel movement. Vital signs are stable. Abdomen is soft with fundus firm and nontender area incision is clean dry and intact with philipp in place. Bowel sounds are present 4. Extremities show negative Homans. Impression is status post primary low transverse section postoperative day #3. Plan is to discharge home today. Routine postoperative and instructions are given. She is advised to follow up in the office in approximately one week for a postoperative check and in 6 weeks for a check. Philipp will be removed and Steri-Strips placed prior to discharge. She will be given a prescription for ibuprofen. Procedures: Primary low transverse section on 05/17/2022 Patient Condition at Discharge: Stable Plan - Discharge Summary New Discharge Prescriptions: New Ibuprofen [Motrin] 600 mg PO Q6H #60 tab Continue Famotidine [Pepcid] 10 mg PO DAILY Vit No.179/Iron/Folic [ Tablet] 1 each PO DAILY Discharge Medication List Famotidine [Pepcid] 10 mg PO DAILY 05/16/22 [History] Vit No.179/Iron/Folic [ Tablet] 1 each PO DAILY 05/16/22 [History] Ibuprofen [Motrin] 600 mg PO Q6H #60 tab 05/20/22 [Rx] Follow up Appointment(s)/Referral(s): Adriane Aceves DO [Doctor of Osteopathic Medicine] - 06/28/22 11:30 am (Post Op Appointment 05-27-2022 at 1:30) Activity/Diet/Wound Care/Special Instructions: Instructions 1. Do not begin any exercise program for 3 weeks. 2. Do not resume sexual relations for 3 weeks or longer if uncomfortable. 3. You may take tub baths or showers at any time. 4. You may use tampons if desired after 3 weeks. 5. Keep the area of episiotomy (stitches) clean and dry. 6. If you are not nursing, wear a good fitting, supportive bra during the day and limit fluid intake for at least 1 week to prevent breast engorgement. 7. Call the office, [phone], within the next week to make appointment for your 6 week checkup if it has not already been made. 8. Report any of the following occurrences to the doctor promptly: a. Heavy, excessive bleeding b. Chills, fever c. Burning or frequency of urination d. Pain or redness and breasts if nursing e. Increasing pain or swelling in episiotomy (stitches). In addition to the above instructions, the following additional should be followed: 1. No heavy lifting or straining (exercising) until after 6 week checkup. 2. Keep abdominal incision clean and dry: You may wear a dressing if more comfortable. 3. Make office appointment for 10 days after going home or as instructed by her doctor. Discharge Disposition: HOME SELF-CARE
[2022-05-20] MEDS: ACETAMINOPHEN TAB 500 MG TAB PO SCH (12:11)
== END 2022-05-20 12:45 | disposition home or self-care (01) | DRG 786 ==
LOC: FBPOP 19:15 → 4FBP 19:53
PROVIDERS: ADMIT Obstetrics & Gynecology; ATTEND Obstetrics & Gynecology
PROC: 10D00Z1 Extraction of Products of Conception, Low, Open Approach (ICD-10-PCS; principal; 2022-05-17)
DX: O77.0 Labor and delivery complicated by meconium in amniotic fluid (principal); O41.1430 Placentitis, third trimester, not applicable or unspecified; O44.43 Low lying placenta NOS or without hemorrhage, third trimester; O26.23 Pregnancy care for patient with recurrent pregnancy loss, third trimester; O43.193 Other malformation of placenta, third trimester; O76 Abnormality in fetal heart rate and rhythm complicating labor and delivery; R00.1 Bradycardia, unspecified; Z37.0 Single live birth; Z3A.39 39 weeks gestation of pregnancy; Z87.891 Personal history of nicotine dependence; Z79.899 Other long term (current) drug therapy; Z91.013 Allergy to seafood; Z82.49 Family history of ischemic heart disease and other diseases of the circulatory system
CPT/HCPCS: 59025; 84112; 85025; 86850; 86900; 86901; 88307; 90707; 99213

== ENCOUNTER 2024-07-06 08:26 | Emergency (ER) | payer OTHER ==
--- NOTE | 2024-07-06 09:27 | ED ---
Female Urogenital HPI - General Chief complaint: Vaginal Bleeding Stated complaint: urogential Time Seen by Provider: 07/06/24 08:39 Source: patient, RN notes reviewed Mode of arrival: ambulatory Limitations: no limitations - History of Present Illness Initial comments: 34-year-old female presents emergency department chief complaint of abnormal vaginal bleeding. Patient states that she had intercourse approxi-1 week ago and started having some vaginal bleeding. Patient dates it subsided and she states that she had intercourse again today which caused some bleeding. She states it is very mild bleeding she does admit that she supposed be on her menstrual cycle. Last Menstrual Period: 06/08/24 - Related Data Home Medications Medication Instructions Recorded Confirmed Famotidine [Pepcid] 10 mg PO DAILY 05/16/22 05/16/22 Vit No.179/Iron/Folic 1 each PO DAILY 05/16/22 05/16/22 [ Tablet] Previous Rx's Medication Instructions Recorded Ibuprofen [Motrin] 600 mg PO Q6H #60 tab 05/20/22 Allergies Allergy/AdvReac Type Severity Reaction Status Date / Time shellfish derived [Shellfish] Allergy Rash/Hives Verified 07/06/24 08:30 Review of Systems ROS Statement: Those systems with pertinent positive or pertinent negative responses have been documented in the HPI. ROS Other: All systems not noted in ROS Statement are negative. Past Medical History Past Medical History: No Reported History History of Any Multi-Drug Resistant Organisms: None Reported Past Surgical History: No Surgical Hx Reported Past Anesthesia/Blood Transfusion Reactions: No Reported Reaction Past Psychological History: No Psychological Hx Reported Smoking Status: Former smoker Past Alcohol Use History: None Reported Past Drug Use History: None Reported - Past Family History Father Family Medical History: Hypertension General Exam Limitations: no limitations General appearance: alert, in no apparent distress Head exam: Present: atraumatic, normocephalic, normal inspection Eye exam: Present: normal appearance, PERRL, EOMI. Absent: scleral icterus, conjunctival injection, periorbital swelling ENT exam: Present: normal exam, normal oropharynx, mucous membranes moist Neck exam: Present: normal inspection, full ROM. Absent: tenderness, meningismus, lymphadenopathy Respiratory exam: Present: normal lung sounds bilaterally. Absent: respiratory distress, wheezes, rales, rhonchi, stridor Cardiovascular Exam: Present: regular rate, normal rhythm, normal heart sounds. Absent: systolic murmur, diastolic murmur, rubs, gallop, clicks GI/Abdominal exam: Present: soft, normal bowel sounds. Absent: distended, tenderness, guarding, rebound, rigid Course Vital Signs 07/06/24 07/06/24 08:27 10:57 Temperature 98.0 F 98 F Pulse Rate 99 66 Respiratory 16 18 Rate Blood Pressure 128/78 107/58 O2 Sat by Pulse 97 100 Oximetry Medical Decision Making - Medical Decision Making Was pt. sent in by a medical professional or institution (, PA, CHIEF DEPUTY CORONER, urgent care, hospital, or group home...) When possible be specific @ -No Did you speak to anyone other than the patient for history (EMS, parent, family, police, friend...)? What history was obtained from this source @ -No Did you review nursing and triage notes (agree or disagree)? Why? @ -I reviewed and agree with nursing and triage notes Were old charts reviewed (outside hosp., previous admission, EMS record, old EKG, old radiological studies, urgent care reports/EKG's, group home records)? Report findings @ -No old charts were reviewed Differential Diagnosis (chest pain, altered mental status, abdominal pain women, abdominal pain men, vaginal bleeding, weakness, fever, dyspnea, syncope, headache, dizziness, GI bleed, back pain, seizure, CVA, palpatations, mental health, musculoskeletal)? @ -Differential Vaginal Bleeding: Spontaneous , threatened , molar , ectopic , bloody show, incompetent cervix, abruptioplacenta, placenta previa, uterine rupture, dysfunctional uterine bleeding, hemorrhage, uterine fibroids, this is not meant to be an all-inclusive list. EKG interpreted by me (3pts min.). @ -None X-rays interpreted by me (1pt min.). @ -None done CT interpreted by me (1pt min.). @ -None done U/S interpreted by me (1pt. min.). @ -All sound transvaginal pelvic showing ovarian cyst, no other acute process, normal endometrial lining What testing was considered but not performed or refused? (CT, X-rays, U/S, labs)? Why? @ -None What meds were considered but not given or refused? Why? @ -None Did you discuss the management of the patient with other professionals (professionals i.e. , PA, CHIEF DEPUTY CORONER, lab, RT, psych nurse, high school social studies tutor, design technology teacher, teacher, loan servicing officer, complex case manager)? Give summary @ -No Was smoking cessation discussed for >3mins.? @ -No Was critical care preformed (if so, how long)? @ -No Were there social determinants of health that impacted care today? How? (Homelessness, low income, unemployed, alcoholism, drug addiction, transportation, low edu. Level, literacy, decrease access to med. care, residential, rehab)? @ -No Was there de-escalation of care discussed even if they declined (Discuss DNR or withdrawal of care, Hospice)? DNR status @ -No What co-morbidities impacted this encounter? (DM, HTN, Smoking, COPD, CAD, Cancer, CVA, ARF, Chemo, Hep., AIDS, mental health diagnosis, sleep apnea, morbid obesity)? @ -None Was patient admitted / discharged? Hospital course, mention meds given and route, prescriptions, significant lab abnormalities, going to OR and other per tinent info. @ -Discharge patient is been having intermittent vaginal bleeding, spotting patient has some dysfunctional uterine bleeding, ovarian cyst. She has no bleeding currently will follow-up with RECORD FILING CLERK. Undiagnosed new problem with uncertain prognosis? @ -No Drug Therapy requiring intensive monitoring for toxicity (Heparin, Nitro, Insulin, Cardizem)? @ -No Were any procedures done? @ -No Diagnosis/symptom? @ -Dysfunctional uterine bleeding, ovarian cyst Acute, or Chronic, or Acute on Chronic? @ -Acute Uncomplicated (without systemic symptoms) or Complicated (systemic symptoms)? @ -uncomplicated Side effects of treatment? @ -No Exacerbation, Progression, or Severe Exacerbation? @ -No Poses a threat to life or bodily function? How? (Chest pain, [place], [place], pneumonia, PE, COPD, DKA, ARF, appy, cholecystitis, CVA, Diverticulitis, Homicidal, Suicidal, threat to staff... and all critical care pts) @ -No - Lab Data Lab Results 07/06/24 07/06/24 Range/Units 09:02 09:02 Urine Color Light Yellow Urine Appearance Clear (Clear) Urine pH 5.5 (5.0-8.0) Ur Specific [place] 1.027 (1.001-1.035) Urine Protein Negative (Negative) Urine Glucose (UA) Negative (Negative) Urine Ketones Negative (Negative) Urine Blood Large H (Negative) Urine Nitrite Negative (Negative) Urine Bilirubin Negative (Negative) Urine Urobilinogen <2.0 (<2.0) mg/dL Ur Leukocyte Esterase Negative (Negative) Urine RBC >182 H (0-5) /hpf Urine WBC 2 (0-5) /hpf Ur Squamous Epith Cells 2 (0-4) /hpf Urine Bacteria Rare H (None) /hpf Hyaline Casts 1 (0-2) /lpf Urine Mucus Moderate H (None) /hpf Urine HCG, Qual Not Detected (Not Detectd) Disposition Clinical Impression: Dysfunctional uterine bleeding, Ovarian cyst Disposition: HOME SELF-CARE Condition: Stable Instructions (If sedation given, give patient instructions): Abnormal (Dysfunctional) Uterine Bleeding (ED) Additional Instructions: Please return to the Emergency Department if symptoms worsen or any other concerns. Is patient prescribed a controlled substance at d/c from ED?: No Referrals: Susan Ingram MD [Primary Care Provider] - 1-2 days Alicia Cabrera DO [Doctor of Osteopathic Medicine] - 1-2 days Time of Disposition: 10:40
--- NOTE | 2024-07-06 09:40 | US ---
EXAMINATION TYPE: US transvaginal DATE OF EXAM: 07/06/2024 COMPARISON: NONE CLINICAL INDICATION: Female, 34 years old with history of abnormal bleeding; Bleeding during intercou rse. No pain. TECHNIQUE: Transvaginal (TV). Transabdominal grayscale sonographic images of the pelvis were acquired. Transvaginal sonographic im ages were medically necessary to better assess the following anatomy: Doppler imaging: Not performed. FINDINGS: Date of LMP: 06/08/2024, [id number] EXAM MEASUREMENTS: Uterus: 7.5 x 5.0 x 4.5 cm Endometrial Stripe: 0.6 cm Right Ovary: 4.1 x 1.7 x 1.7 cm Left Ovary: 2.9 x 1.6 x 1.4 cm 1. Uterus: Retroverted Heterogenous 2. Endometrium: wnl 3. Right Ovary: Complex hypoechoic solid appearing lesion with peripheral vascular flow = 1.3 x 1.2 x 1.2 cm. Follicles seen 4. Left Ovary: Follicles seen Spectral, color and waveform doppler imaging shows good arterial and venous flow within the ovaries ; there is no evidence for ovarian torsion. 5. Bilateral Adnexa: no free fluid 6. Posterior cul-de-sac: no free fluid IMPRESSION: 1. Solid appearing right ovarian lesion. Follow-up recommended. Consider MRI. [facility], , 07/06/2024 9:38 AM
[2024-07-06 10:14] LABS: Appearance,Urine Clear (Clear); Bacteria,Urine Rare /hpf; Bilirubin,Urine Negative (Negative); Blood,Urine Large (Negative); Color,Urine Light Yellow; Glucose,Urine (UA) Negative (Negative); Hyaline Casts,Urine 1 /lpf (0-2); Ketones,Urine Negative (Negative); Leukocyte Esterase,Urine Negative (Negative); Mucus,Urine Moderate /hpf; Nitrite,Urine Negative (Negative); PH, Urine 5.5 (5.0-8.0); Protein,Urine Negative (Negative); RBC,Urine >182 /hpf (0-5); Specific Gravity,Urine 1.027 (1.001-1.035); Squamous Epithelial Cell,Urine 2 /hpf (0-4); Urobilinogen,Urine <2.0 mg/dL (<2.0); WBC,Urine 2 /hpf (0-5)
[2024-07-06 10:59] VITALS: BP 107/58; PULSE 66; RESP 18; TEMP 98
== END 2024-07-06 10:59 | disposition home or self-care (01) ==
LOC: EC 08:26
DX: N83.209 Unspecified ovarian cyst, unspecified side (principal); N93.8 Other specified abnormal uterine and vaginal bleeding; Z87.891 Personal history of nicotine dependence
CPT/HCPCS: 76830; 81001; 81025; 93975; 99284